=== PATIENT | male | born 1965 | race Caucasian/White ===

== ENCOUNTER 2021-02-12 07:39 | Day surgery (SDC) | payer BC ==
[~2021-02-12] VITALS: Ht 177.8 cm; Wt 86.5 kg
[~2021-02-12 07:39] MED LIST: HYDROmorphone 2 MG/ML VIAL IVP PRN; IV RINGERS,LACTATED 1000ML 1,000 ML IV SCH; MORPHINE SULFATE 2 MG/ML INJ. IVP PRN; PROCHLORPERAZINE 10 MG/2 ML VIAL. IVP PRN; fentaNYL PF VIAL 100 MCG/2 ML VIAL IVP PRN
[2021-02-12] MEDS ORDERED: LAMO300T2 PO (08:15)
[2021-02-12 08:19] VITALS: BP 142/67
[2021-02-12] MEDS ORDERED: FAMOTIDINE 20 MG/2 ML VIAL ONE (08:21)
[2021-02-12] MEDS ORDERED: fentaNYL PF VIAL 100 MCG/2 ML VIAL ONE (08:21)
[2021-02-12] MEDS ORDERED: ONDANSETRON PF 4 MG/2 ML VIAL. ONE (08:21)
[2021-02-12] MEDS ORDERED: PROPOFOL 10 MG/ML (20ML) VIAL. IV ONE (08:21)
[2021-02-12] MEDS ORDERED: SUCCINYLCHOLINE 200 MG/10 ML VIAL. ONE (08:21)
[2021-02-12] MEDS ORDERED: DEXAMETHASONE SOD PHOS 4 MG/ML VIAL ONE (08:21)
[2021-02-12] MEDS ORDERED: MIDAZOLAM HCL/PF 2 MG/2 ML VIAL. ONE (08:22)
[2021-02-12] MEDS ORDERED: LIDOCAINE 1% PF 5 ML VIAL. ONE (08:22)
[2021-02-12] MEDS ORDERED: BUPIVACAINE-EPI 0.5% 30 ML VIAL KIT. ONE (09:06)
[2021-02-12] MEDS ORDERED: PHENYLEPHRINE in 0.9% NACL PF 1 MG/10 ML SYRINGE. IV ONE (09:43)
[2021-02-12] MEDS ORDERED: MORPHINE SULFATE 10 MG/ML VIAL. ONE (09:46)
[2021-02-12] MEDS ORDERED: ePHEDrine PF IN SALINE 50 MG/10 ML SYRINGE. IV ONE (09:52)
--- NOTE | 2021-02-12 11:04 | PDOC4 ---
Operative Note Operative Note Operative Note: Preoperative Diagnosis: Pilonidal cyst Postoperative Diagnosis: Same Procedure: Excision of pilonidal cyst Surgeon: Preet Turnstile Attendant: Silverio Dickens MS 4 Anesthesia: General EBL: 10 mL Specimen: Pilonidal cyst to pathology Drains: None Complications: None Indication: The patient is a 55-year-old male who is referred due to a pilonidal cyst. Surgical excision was offered. The risks of surgery were discussed which include bleeding, infection, wound healing problems, pain, recurrence, anesthetic risk, potential need for additional surgery procedure. He understands and would like to proceed. Description: The patient was taken to the operating room and placed supine in the operating table. General anesthesia was performed. The sacrococcygeal area was prepped with Betadine and draped in a standard surgical manner. The origin of the pilonidal tract was readily identified and probed. The tract headed inferiorly and to the left side of the anal canal. With a scalpel an elliptical incision was made around the involved track. Cautery dissection was carried down into the subcutaneous tissues. The entire tract was mobilized from the surrounding tissues with cautery and excised. The tract was sent to pathology for evaluation. Hemostasis was achieved with cautery. The wound was then closed primarily in layers. The deep subcutaneous tissues were approximated with 2-0 Vicryl. The superficial subcutaneous tissues were approximated 3-0 Vicryl. The skin was closed with 4 Monocryl. A sterile dressing was then applied. The patient tolerated the procedure well and was sent to the recovery room in stable condition. At the end of the case all counts were correct. LUCY CORONEL MD Feb 12, 2021 11:04
[2021-02-12] MEDS ORDERED: OXYC-325 PO (11:07)
[2021-02-12] MEDS ORDERED: NALOXONE 0.4 MG/ML VIAL. ONE (11:11)
--- NOTE | 2021-02-12 11:11 | DISCH ---
DISCHARGE INSTRUCTIONS Condition on Discharge Condition on Discharge: Stable Activity After Discharge Activity Instructions for Disc: Other, see below (keep pressure off of lower back and upper buttock) Diet after Discharge Diet after Discharge: Regular Wound Incision Care Wound/Incision Care: Other, see below (keep incision site clean and dry X 72 hours, may then shower) Follow-Up Follow up with: Dr Coronel in office in 2 weeks, call for appointment [phone] LUCY CORONEL MD Feb 12, 2021 11:11
[2021-02-12] MEDS ORDERED: oxyCODONE/APAP 5/325 1 TAB TABLET PO ONE (11:30)
[2021-02-12 11:54] VITALS: BP 125/64
--- NOTE | 2021-02-16 13:07 | PATHOLOGY ---
[facility] Accession Number: [id number] . 01 Material submitted: . gluteal cleft - PILONDIAL CYST . 01 Clinical history: . PILONDIAL CYST . 02 Diagnosis: Pilonidal cyst, excision: - Squamous lined sinus tract, with hair remnants, associated fibrosis and mixed acute and chronic inflammation. - Negative for malignancy. (ML[facility]ille; 02/14/2021) MBR 02/16/2021 1242 Local . 02 Electronically signed: . Jaimee Lowry MD, Pathologist NPI- [id number] . 01 Gross description: . The specimen is received in formalin, labeled "Asher, Tristram, pilonidal cyst". Received is a segment of pale garnica-fletcher and wrinkled skin with underlying soft tissue measuring 6.8 x 1.0 x 1.6 cm in greatest dimensions. The epidermal surface displays a circular defect measuring 0.3 cm. The surgical margin is inked. Sectioning reveals pale yellow to pale garnica cut surfaces with a linear sinus tract measuring 0.7 x 0.5 cm. Bench Assembler Operator sections are submitted in cassettes A1-A3. ([facility]; 02/13/2021) NRI/NRI 02/13/2021 1538 Local . 02 Pathologist provided ICD-10: L05.91 . 02 CPT . 721387 Specimen Comment: A courtesy copy of this report has been sent to [phone], [phone] Specimen Comment: [id number] Specimen Comment: Report sent to / DR REESE Performed at: [address], [place], [place] [id number] MD Miguel Ulloa MD Phone: [phone] Performed at: 02 [facility] [address], [place] [id number] MD Andres Sharma MD Phone: [phone]
== END 2021-02-12 13:10 | disposition home or self-care (01) ==
LOC: SURG 07:39
PROVIDERS: ATTEND Surgery
DX: L05.91 Pilonidal cyst without abscess (principal); Z87.891 Personal history of nicotine dependence; Z79.899 Other long term (current) drug therapy; Z98.890 Other specified postprocedural states
CPT/HCPCS: 11770; A4930; J0330; J0690; J1100; J2250; J2270; J2310; J2370; J2405; J2704; J3010; J3490